=== PATIENT | female | born 1995 | race Hispanic/Latino ===

== ENCOUNTER 2017-11-12 22:15 | Emergency (ER) | payer SELFPAY ==
[~2017-11-12] VITALS: Ht 160 cm; Wt 72.6 kg
[~2017-11-12 22:15] MED LIST: BACTRIM DS TAB1 EACH PO; IBUPROFEN600 M1 PO; KEFLEX500 M1 PO; ZOFRAN ODT4 M1 SL
--- NOTE | 2017-11-12 22:48 | ED HAND/WRIST INJURY COMPLAINT ---
History of Present Illness General Chief Complaint: Hand or Wrist Injury Stated Complaint: L WRIST PAIN Source: patient, old records Exam Limitations: no limitations Vital Signs & Intake/Output Vital Signs & Intake/Output Vital Signs Date Time Temp Pulse Resp B/P B/P Pulse O2 O2 Flow FiO2 Mean Ox Delivery Rate 11/12 2300 Room Air 11/12 2221 98.2 18 97 Room Air Allergies Coded Allergies: pollen extracts (Mild, SNEEZING COUGH 09/30/17) Uncoded Allergies: DUST (Mild, NOSE ITCHY 12/04/11) Reconcile Medications Cephalexin (Keflex) 500 MG CAPSULE 1 CAP PO TID ABSCESS Ibuprofen 600 MG TABLET 1 TAB PO TID PRN PAIN with food Sulfamethoxazole/Trimethoprim (Bactrim Ds Tablet) 800 MG-160 MG TABLET 1 TAB PO BID ABSCESS Sulfamethoxazole/Trimethoprim (Bactrim Ds Tablet) 800 MG-160 MG TABLET 1 TAB PO BID UTI Triage Note: PT TO TRIAGE C/O LEFT WRIST PAIN THAT WORSENS WITH MOVEMENTS. DENIES FALL, DENIES INJURY. PT ALSO DENIES NEED FOR MEDICATION IN TRIAGE. Triage Nurses Notes Reviewed? yes Occurred: last week Duration: week(s): (1), intermittent, waxing and waning Timing: remote history Injury Environment: home Severity: mild Severity Numbers: 4 Pain/Injury Location: Left: Wrist. Method of Injury: unknown No Modifying Factors: none Associated Symptoms: none : No Patient currently breastfeeds: No HPI: 22-year-old female presents complaining of several day history of left wrist pain ulnar aspect that only is present with certain movements at work. She denies any symptoms at rest. She has not been taking anything for her pain she denies any known injury or trauma no fall. She is right-hand dominant. No numbness or tingling to her hand or fingers. She denies any radiation of pain up to her arm and elbow. She denies any other joint pain fevers or chills. (Teetee BOOGIE,Stanley) Past History Travel History Traveled to [place] past 21 day No Medical History Any Pertinent Medical History? 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 No (Stanley Cardona) Review of Systems Review of Systems Constitutional: Reports: see HPI. Comments Review of systems: See HPI, All other systems negative. Constitutional, no chills no fever, HEENT: no sore throat no congestion Cardiovascular: No chest pain Skin: no rashes, no change in skin Muscle skeletal: joint pain, no back pain, no neck pain, Neurologic: , no headache Psych: No stress (Stanley Cardona) Physical Exam Physical Exam General Appearance: well developed/nourished, no apparent distress, alert, awake Hand Left: normal inspection, normal range of motion Hand Right: normal inspection, normal range of motion Comments: Well-developed well-nourished patient in no apparent distress. HEENT: Atraumatic, extraocular motion intact Neck: Supple, FROM Back: FROM Respiratory: No respiratory distress. Patient speaking in full complete sentences. Shoulder: Atraumatic/Stable. FROM . Elbow: Atraumatic/stable. FROM. No laxity Upper arm/Forearm: Atraumatic. Nontender. 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 Skin intact. FROM Pulses: Normal/equal radial pulses bilaterally. Brisk cap refill LOWER Extremities: full range of motion Neuro: awake, alert, and oriented to person, place and time. There were no obvious focal neurologic abnormalities. Skin: Warm & dry;No appreciable rash on exposed skin Psych: Mood affect normal, normal memory normal judgment. (Stanley Cardona) Progress Differential Diagnosis: contusion, dislocation, fracture, gout, sprain, tendinitis Plan of Care: Orders Procedure Date/time Status Durable Medical Equipment 11/12 1545 Active I discussed with the patient her x-ray results NEED for supportive care brace applied by nurses symptoms are consistent with overuse injury tendinitis advise close follow-up with primary care she feels comfortable plan Diagnostic Imaging: Viewed by Me: Radiology Read. Discussed w/RAD: Radiology Read. Radiology Impression: PATIENT: NEAL ADKINS PRESENT AGE: 22 PATIENT ACCOUNT NO: [id number] : 97 LOCATION: [facility] ORDERING PHYSICIAN: Stanley BOOGIE SERVICE DATE: 11/12/17 EXAM TYPE: RAD - XRY- WRIST COMPLETE-LEFT EXAMINATION: XR WRIST, LEFT CLINICAL INFORMATION: Pain COMPARISON: None TECHNIQUE: Four views of the left wrist. FINDINGS: There is no fracture or dislocation. The carpal rows are appropriately aligned. Joint spaces are maintained. There is negative ulnar variance of 0.3 cm. The soft tissues are unremarkable. IMPRESSION: Negative ulnar variance. Otherwise unremarkable study. DICTATED BY: Wilson Garcia MD DATE/TIME DICTATED:11/12/172255 HUMAN RESOURCES COMMUNICATIONS MANAGER:AMPARO DATE/TIME TRANSCRIBED:11/12/172255 CONFIDENTIAL, DO NOT COPY WITHOUT APPROPRIATE AUTHORIZATION. <Electronically signed in Other Vendor System> SIGNED BY: Wilson Garcia MD 11/12/179 (Stanley Cardona) Departure Departure Time of Disposition: 2258 Disposition: HOME OR SELF CARE Condition: Stable Clinical Impression Primary Impression: Wrist sprain Referrals: Jos Ríos MD (PCP/Family) Additional Instructions: REST, ICE TYLENOL MOTRIN FOR PAIN. BRACE DISCUSSED. FOLLOW UP WITH YOUR PMD. 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 I have also reviewed all the pertinent lab results and diagnostic results. I agree with the findings and the plan of care as documented in the PA's/PIPE MACHINE OPERATOR's documentation. x I have reviewed the ED Record and agree with the PA's/PIPE MACHINE OPERATOR's documentation. [] Additions or exceptions (if any) to the PAs/PIPE MACHINE OPERATOR's note and plan are summarized below: [] (Susan REYEZ,Ortiz)
--- NOTE | 2017-11-12 23:01 | RADIOLOGY REPORT ---
EXAMINATION: XR WRIST, LEFT CLINICAL INFORMATION: Pain COMPARISON: None TECHNIQUE: Four views of the left wrist. FINDINGS: There is no fracture or dislocation. The carpal rows are appropriately aligned. Joint spaces are maintained. There is negative ulnar variance of 0.3 cm. The soft tissues are unremarkable. IMPRESSION: Negative ulnar variance. Otherwise unremarkable study.
== END 2017-11-12 23:17 ==
LOC: ERH 22:15
DX: S63.502A Unspecified sprain of left wrist, initial encounter (principal); X58.XXXA Exposure to other specified factors, initial encounter; Y92.9 Unspecified place or not applicable; Y93.9 Activity, unspecified
CPT/HCPCS: 73110-LT